=== PATIENT | female | born 1960 | race Caucasian/White ===

== ENCOUNTER 2019-03-21 01:31 | Inpatient (IN) | payer OTHER ==
[~2019-03-21] VITALS: Ht 152.4 cm; Wt 48.5 kg
--- NOTE | ~2019-03-21 | CON ---
[address] [address] CONSULTATION Name: LEON JAQUEZ Room: [address] IN M.R.#: [id number] Admission: 03/21/19 Attend Phys: Phillip Molina Discharge: Date of : 58 Report #: [id number] THIS REPORT FOR: //name// CC: Charmaine Andujar DATE OF SERVICE: 03/21/2019 HISTORY OF PRESENT ILLNESS: This is a pleasant 58-year-old female with past medical history significant for hyperlipidemia, who is presenting for evaluation of abdominal pain. The patient reports the abdominal pain began Saturday evening, is located in the epigastric region and became progressively worse, which prompted her hospital visit. The pain is localized, nonradiating, severe in intensity, it is associated with nausea and vomiting. The patient reports vomiting about 30 times since the onset of pain. Denies any hematemesis, hematochezia, melena, weight loss or other alarm symptoms. The patient reports this is the first time she has had these symptoms. PAST MEDICAL HISTORY: Hyperlipidemia. PAST SURGICAL HISTORY: The patient had no significant abdominal surgery. SOCIAL HISTORY: The patient denies smoking, takes about 1 beer per week. Denies any recreational drug use. FAMILY HISTORY: No family history of colon cancer or Marvin-related neoplasia. REVIEW OF SYSTEMS: Negative except for what was mentioned in the HPI. PHYSICAL EXAMINATION: GENERAL: The patient is alert, awake, oriented x 3. HEENT: Pupils are equal, round, reactive to light and accommodation. Mucous membranes are moist. There is no congestion. LUNGS: Clear to auscultation bilaterally. CARDIOVASCULAR: Rate and rhythm regular, S1, S2 present. ABDOMEN: Soft. There is no distention, guarding or rigidity. EXTREMITIES: Warm and well perfused. There is no edema. SKIN: Warm and dry. VITAL SIGNS: Temperature 37.6, pulse rate 102, blood pressure 130/73, respiratory rate 16. LABORATORY DATA: WBC count 26.2, hemoglobin 16.3, hematocrit 47.7, platelet count 265. Sodium 140, potassium 3.8, chloride 101, bicarbonate 25, BUN 18, creatinine 1.3, total bilirubin 0.6, AST 28, ALT 26, alkaline phosphatase 61. IMAGING: CT abdomen shows evidence of acute pancreatitis with mild [facility] [address] [place] [address] CONSULTATION Name: LEON JQAUEZ Room: [address] IN [facility]#: [id number] Admission: 03/21/19 Attend Phys: Phillip Molina Discharge: Date of : 58 Report #: [id number] peripancreatic fluid collection. ASSESSMENT AND PLAN: Pleasant 58-year-old female with past medical history of hyperlipidemia, who is presenting for evaluation of epigastric abdominal pain. The patient found to have elevated lipase as well as mild fluid collection around the pancreas with pancreatic edema suggestive of acute pancreatitis. The patient does not have gallstones; therefore, there is no evidence of biliary pancreatitis and she does not have significant alcohol use. Therefore, I would like to get an endoscopic ultrasound in 4 weeks for acute idiopathic pancreatitis. We will start the patient on clear liquid diet today, advance diet as tolerated. Continue supportive management. By: 1330 0000Vijasvir Martinez MD /nt
[~2019-03-21 01:31] MED LIST: CRESTOR10 MG PO; PERCOCET 5-3251 EACH PO
[2019-03-21 01:36] VITALS: BP 145/99
[2019-03-21] MEDS ORDERED: EVISTA60 MG PO (01:41)
[2019-03-21 02:01] LABS: HEMATOCRIT 47.7 % (37.0-47.0); HEMOGLOBIN 16.3 gm/dL (12.0-15.0); MCH 33.1 pg (26.0-34.0); MCHC 34.2 g/dL (28.0-37.0); MCV 96.8 fL (80.0-100.0); MPV 9.1 fl. (7.2-11.1); NUCLEATED RBCS 0 /100WBC; PLATELET COUNT* 265 thou/uL (150-400); RBC 4.92 mil/uL (4.20-5.00); RDW-CV 12.5 % (10.5-14.5); WBC 26.2 thou/uL (4.0-11.0)
[2019-03-21 02:23] LABS: ALBUMIN 3.9 g/dL (3.4-5.0); CALCIUM 9.1 mg/dL (8.5-10.1); CREATININE 1.3 mg/dL (0.6-1.3); POTASSIUM 3.8 mmol/L (3.5-5.1); TOTAL BILIRUBIN 0.6 mg/dL (<0.1-1.0); TOTAL PROTEIN 7.6 g/dL (6.4-8.2)
[2019-03-21 03:36] LABS: ABSOLUTE LYMPHOCYTES 1.8 thou/uL (0.8-5.3); ABSOLUTE MONOCYTES 2.1 thou/uL (0.0-1.2); ABSOLUTE NEUTROPHILS 22.3 thou/uL (1.6-8.1); PLATELET ESTIMATE ADEQUATE; TOXIC GRANULATION 1+
[2019-03-21 08:05] VITALS: BP 128/75
[2019-03-21 10:18] VITALS: BP 143/75
[2019-03-21 10:42] LABS: CHOLESTEROL 152 mg/dL (<200); HDL CHOLESTEROL 87 mg/dL (>40); LDL CHOLESTEROL 54 mg/dL (<100); TC:HDL 1.7 Ratio (Not establshd); TRIGLYCERIDE 58 mg/dL (<150); VLDL 12 mg/dL (<40)
[2019-03-21 10:43] LABS: SERUM ASSESSMENT Clear
--- NOTE | 2019-03-21 11:00 | NUR ---
PATIENT ARRIVED TO UNIT FROM ER AT 1027. ALERT AND ORIENTED X 4. VITAL SIGNS STABLE ON ROOM AIR. UP INDEPENDENTLY IN ROOM. IV PATENT WITH FLUIDS INFUSING. DENIES PAIN AND NAUSEA AT THIS TIME. ORIENTED PATIENT TO ROOM. CALL LIGHT WITHIN REACH. NURSING WILL CONTINUE TO MONITOR.
[2019-03-21 12:04] VITALS: BP 130/73
[2019-03-21 17:21] VITALS: BP 133/76
--- NOTE | 2019-03-21 18:09 | NUR ---
PATIENT ALERT AND ORIENTED X 4. VITAL SIGNS STABLE ON ROOM AIR. UP INDEPENDENTLY IN ROOM. IV PATENT AND FLUIDS INFUSING. DENIES PAIN AT THIS TIME. NAUSEA BEING MANAGED WITH PO MEDICATION. HOURLY ROUNDS MAINTAINED SINCE ARRIVING TO UNIT. CALL LIGHT WITHIN REACH. NURSING WILL CONTINUE TO MONITOR.
[2019-03-21 21:45] VITALS: BP 90/51
[2019-03-22 02:06] LABS: GLYCOHEMOGLOBIN (HGB A1C) 5.4 % (4.8-5.6)
[2019-03-22 03:07] LABS: HEPATITIS B SURFACE AG Negative (Negative)
[2019-03-22 04:38] LABS: HEMATOCRIT 36.1 % (37.0-47.0); MCH 33.4 pg (26.0-34.0); MCHC 34.1 g/dL (28.0-37.0); MCV 97.8 fL (80.0-100.0); MPV 9.5 fl. (7.2-11.1); RBC 3.69 mil/uL (4.20-5.00); RDW-CV 12.5 % (10.5-14.5); WBC 18.9 thou/uL (4.0-11.0)
[2019-03-22 04:58] LABS: HEMOGLOBIN 12.3 gm/dL (12.0-15.0)
--- NOTE | 2019-03-22 05:01 | NUR ---
PATIENT HAS SLEPT WELL THROUGHOUT THE NIGHT. VSS ON RA. NO C/O PAIN. PATIENT HAS REMAINED ON CLEAR LIQUID DIET. MEDICATIONS GIVEN ORDERED AND CHARTED. ASSESSMENT CHARTED. IV IN RIGHT AC-NS @ 150ML/HR. PATIENT INSTRUCTED TO USE CALL LIGHT WHEN NEEDING ASSISTANCE. HOURLY ROUNDS MADE. WILL CONTINUE WITH PLAN OF CARE AND NURSING TO MONITOR.
[2019-03-22 05:03] LABS: ALBUMIN 2.5 g/dL (3.4-5.0); CALCIUM 7.3 mg/dL (8.5-10.1); CREATININE 0.8 mg/dL (0.6-1.3); MAGNESIUM 1.6 mg/dL (1.8-2.4); POTASSIUM 3.6 mmol/L (3.5-5.1); TOTAL BILIRUBIN 0.6 mg/dL (<0.1-1.0); TOTAL PROTEIN 5.3 g/dL (6.4-8.2)
[2019-03-22 08:00] VITALS: BP 113/76
--- NOTE | 2019-03-22 15:44 | NUR ---
PATIENT ALERT AND ORIENTED X 4. VITAL SIGNS STABLE ON ROOM AIR. UP INDEPENDENTLY IN ROOM. IV PATENT WITH FLUIDS INFUSING. DENIES PAIN AT THIS TIME. NAUSEA BEING MANAGED WITH IV MEDICATION AND SCOPALAMINE PATCH. TOLERATING SOFT FIBER RESTRICTED DIET. HOURLY ROUNDS MAINTAINED THROUGHOUT THE SHIFT. CALL LIGHT WITHIN REACH. NURSING WILL CONTINUE TO MONITOR.
[2019-03-22 16:00] VITALS: BP 132/83
[2019-03-22 21:00] VITALS: BP 123/70
--- NOTE | 2019-03-23 06:17 | NUR ---
PATIENT HAS SLEPT WELL THROUGHOUT THE NIGHT. VSS ON RA. MEDICATION GIVEN ORDERED AND CHARTED. ASSESSMENT CHARTED. IV IN RIGHT AC-NS @ 100ML/HR. PATIENT INSTRUCTED TO USE CALL LIGHT WHEN NEEDING ASSISTANCE. HOURLY ROUNDS MADE. WILL CONTINUE WITH PLAN OF CARE AND NURSING TO MONITOR.
[2019-03-23 09:05] VITALS: BP 106/68
[2019-03-23] MEDS ORDERED: PROTONIX 20 MG20 MG PO (13:19)
[2019-03-23] MEDS ORDERED: ONDANSETRON HCL4 M2 PO (13:19)
[2019-03-23 15:11] VITALS: BP 123/70
[2019-03-23 15:13] VITALS: BP 123/70
[2019-03-23 16:15] VITALS: BP 123/70
== END 2019-03-23 16:15 | disposition home or self-care (01) | DRG 440 ==
LOC: M.ERS 01:31 → M.ORTHSURG 03:45 → M.TBA-ER 03:45 → M.ORTHSURG 10:26
PROVIDERS: Emergency Medicine; Internal Medicine; ADMIT Family Medicine
DX: K85.80 Other acute pancreatitis without necrosis or infection (principal); E78.5 Hyperlipidemia, unspecified; R73.9 Hyperglycemia, unspecified; D72.829 Elevated white blood cell count, unspecified; K80.80 Other cholelithiasis without obstruction; Z79.899 Other long term (current) drug therapy

== ENCOUNTER 2019-07-19 16:01 | Inpatient (IN) | payer OTHER ==
[~2019-07-19] VITALS: Ht 152.4 cm; Wt 47.6 kg
[~2019-07-19 16:01] MED LIST changes: +EVISTA60 MG PO; +ONDANSETRON HCL4 M2 PO; +PROTONIX 20 MG20 MG PO
[2019-07-19 16:02] VITALS: BP 78/36
[2019-07-19 16:33] LABS: ABSOLUTE BASOPHILS 0.1 thou/uL (0.0-0.2); ABSOLUTE EOSINOPHILS 0.1 thou/uL (0.0-0.7); ABSOLUTE LYMPHOCYTES 2.7 thou/uL (0.8-5.3); ABSOLUTE MONOCYTES 0.6 thou/uL (0.0-1.2); ABSOLUTE NEUTROPHILS 4.4 thou/uL (1.6-8.1); BASOPHILS 0.7 %; EOSINOPHILS 1.1 %; HEMOGLOBIN 13.6 gm/dL (12.0-15.0); LYMPHOCYTES 34.4 %; MCH 33.3 pg (26.0-34.0); MCHC 34.1 g/dL (28.0-37.0); MCV 97.6 fL (80.0-100.0); MONOCYTES 7.5 %; MPV 9.4 fl. (7.2-11.1); NUCLEATED RBCS 0 /100WBC; PLATELET COUNT* 230 thou/uL (150-400); POLYS 56.3 %; RBC 4.09 mil/uL (4.20-5.00); RDW-CV 12.7 % (10.5-14.5); WBC 7.8 thou/uL (4.0-11.0)
[2019-07-19 16:52] LABS: CALCIUM 9.1 mg/dL (8.5-10.1); POTASSIUM 3.6 mmol/L (3.5-5.1)
[2019-07-19 16:57] LABS: ALBUMIN 3.4 g/dL (3.4-5.0); TOTAL BILIRUBIN 0.3 mg/dL (<0.1-1.0); TOTAL PROTEIN 6.2 g/dL (6.4-8.2)
[2019-07-19 19:20] VITALS: BP 127/62
[2019-07-19 20:18] VITALS: BP 108/69
[2019-07-20 00:30] VITALS: BP 103/65
[2019-07-20 02:36] LABS: URINE BILIRUBIN NEGATIVE (Negative); URINE BLOOD NEGATIVE (Negative); URINE CLARITY CLEAR; URINE COLOR YELLOW; URINE GLUCOSE-RANDOM NEGATIVE (Negative); URINE KETONES 1+ (Negative); URINE LEUKOCYTES-REFLEX NEGATIVE (Negative); URINE NITRITE-REFLEX NEGATIVE (Negative); URINE PROTEIN NEGATIVE (Negative); URINE SPECIFIC GRAVITY 1.025 (1.005-1.030); URINE UROBILINOGEN 0.2 E.U./dl (0.2-1.0)
[2019-07-20 04:30] VITALS: BP 107/68
[2019-07-20 07:47] VITALS: BP 106/68
[2019-07-20 16:00] VITALS: BP 100/65
--- NOTE | 2019-07-20 16:36 | EKG ---
[place] [address] ELECTROCARDIOGRAM REPORT Name: LEON JAQUEZ Room: [address] ADM IN M.R.#: [id number] Admission: 07/19/19 Attend Phys: Phillip box Sa Discharge: Date of : 58 Date of Service: 07/19/19 1621 Report #: [id number] THIS REPORT FOR: //name// [facility] ED Test Date: 2019-07-19 Test Time: 16:21:37 Pat Name: LEON JAQUEZ Department: Room: [facility] Gender: F Soft Tile Setter: DS : 1960 Requested By: Amada Soto Order Number: [id number] MD: Singh Mclean Measurements Intervals [place] Rate: 84 P: 68 [place]: 146 QRS: 46 QRSD: 87 T: 24 QT: 382 QTc: 452 Interpretive Statements Sinus rhythm Compared to ECG 05/01/2011 09:45:42 No significant changes Electronically Signed On 07-20-2019 16:34:29 CDT by Singh Mclean [email or web address] <ELECTRONICALLY SIGNED> By: Singh Mclean MD, [facility] 07/20/19 1634 1621 1621 Singh Mclean MD, [facility] /EPI
[2019-07-20 19:30] VITALS: BP 106/64
[2019-07-21 06:01] LABS: HEMATOCRIT 30.3 % (37.0-47.0); MCH 33.8 pg (26.0-34.0); MCHC 34.7 g/dL (28.0-37.0); MCV 97.6 fL (80.0-100.0); MPV 8.8 fl. (7.2-11.1); RBC 3.1 mil/uL (4.20-5.00); RDW-CV 12.3 % (10.5-14.5); WBC 6.2 thou/uL (4.0-11.0)
[2019-07-21 06:08] LABS: HEMOGLOBIN 10.5 gm/dL (12.0-15.0)
[2019-07-21 06:10] LABS: PROTIME 10.4 Seconds (9.20-11.50)
[2019-07-21 06:16] LABS: ALBUMIN 2.6 g/dL (3.4-5.0); CALCIUM 7.9 mg/dL (8.5-10.1); CREATININE 0.9 mg/dL (0.6-1.3); MAGNESIUM 1.9 mg/dL (1.8-2.4); PHOSPHORUS* 3.5 mg/dL (2.5-4.9); POTASSIUM 3.8 mmol/L (3.5-5.1)
[2019-07-21 08:02] VITALS: BP 102/64
[2019-07-21 20:00] VITALS: BP 103/66
[2019-07-22 06:11] LABS: HEMATOCRIT 30.4 % (37.0-47.0); HEMOGLOBIN 10.7 gm/dL (12.0-15.0); MCH 34.4 pg (26.0-34.0); MCV 98.1 fL (80.0-100.0); MPV 9.3 fl. (7.2-11.1); RBC 3.1 mil/uL (4.20-5.00); RDW-CV 12.5 % (10.5-14.5); WBC 7.7 thou/uL (4.0-11.0)
[2019-07-22 06:25] LABS: ALBUMIN 2.7 g/dL (3.4-5.0); CALCIUM 8.2 mg/dL (8.5-10.1); CREATININE 0.8 mg/dL (0.6-1.3); POTASSIUM 3.9 mmol/L (3.5-5.1); TOTAL BILIRUBIN 0.4 mg/dL (<0.1-1.0); TOTAL PROTEIN 5.7 g/dL (6.4-8.2)
[2019-07-22 06:29] LABS: MAGNESIUM 1.9 mg/dL (1.8-2.4)
[2019-07-22 07:35] VITALS: BP 115/79
[2019-07-22 16:14] VITALS: BP 115/79
[2019-07-22 21:00] VITALS: BP 102/67
[2019-07-23] VITALS: BP 122/72
[2019-07-23 04:00] VITALS: BP 126/80
[2019-07-23 04:56] LABS: HEMATOCRIT 28.5 % (37.0-47.0); HEMOGLOBIN 9.8 gm/dL (12.0-15.0); MCH 33.5 pg (26.0-34.0); MCHC 34.2 g/dL (28.0-37.0); MPV 8.7 fl. (7.2-11.1); RBC 2.91 mil/uL (4.20-5.00); RDW-CV 12.1 % (10.5-14.5); WBC 10.3 thou/uL (4.0-11.0)
[2019-07-23 05:07] LABS: ALBUMIN 2.5 g/dL (3.4-5.0); CALCIUM 7.6 mg/dL (8.5-10.1); CREATININE 0.9 mg/dL (0.6-1.3); MAGNESIUM 1.7 mg/dL (1.8-2.4); POTASSIUM 4.1 mmol/L (3.5-5.1); TOTAL BILIRUBIN 0.4 mg/dL (<0.1-1.0); TOTAL PROTEIN 5.7 g/dL (6.4-8.2)
[2019-07-23 08:40] VITALS: BP 107/65
[2019-07-23 17:40] VITALS: BP 96/53
[2019-07-23 20:32] VITALS: BP 101/53
--- NOTE | 2019-07-23 21:44 | OP ---
[address] [address] OPERATIVE REPORT Name: MENG JAQUEZITH NELSON Room: [address] ADM IN M.R.#: [id number] Admission: 07/19/19 Attend Phys: Phillip Molina Discharge: Date of : 58 Report #: [id number] THIS REPORT FOR: //name// cc: Charmaine Jane Anna S. DO ~ THIS REPORT FOR: //name// CC: Charmaine Andujar DATE OF SERVICE: 07/22/2019 PREOPERATIVE DIAGNOSIS: Right comminuted proximal humerus fracture. POSTOPERATIVE DIAGNOSIS: Right comminuted proximal humerus fracture. PROCEDURE: Open reduction and internal fixation of right comminuted proximal humerus fracture. SURGEON: Gabe Reina DO ASSISTANTS: 1. Toribio Moran DO 2. Roman Jackson DO ANESTHESIA: General. ANTIBIOTICS: Ancef IV. FLUIDS: 1200 mL lactated Ringer's. ESTIMATED BLOOD LOSS: 250 mL. COMPLICATIONS: None. SPECIMENS: None. DRAINS: None. CONDITION OF THE PATIENT: Stable to PACU. IMPLANTS: Rosario ALPS proximal humerus plate, 11-hole locking screws proximally, cortical screws distally. Underneath the plate, there is one 2.7 [place] small-frag stainless steel screw in lag fashion. INDICATIONS FOR PROCEDURE: The patient admitted to [address] [address] OPERATIVE REPORT Name: LEON JAQUEZ Room: [address] IN M.R.#: [id number] Admission: 07/19/19 Attend Phys: Phillip Molina Discharge: Date of : 58 Report #: [id number] with a comminuted proximal humerus fracture, originally under Dr. Dudley's consultation. He asked that I take over care due to my fracture training. I went over with both her and her the imaging, exam findings, diagnosis, treatment options, ranging from nonoperative to operative, they wished to have operative. Risks and complications were discussed of ORIF for her comminuted proximal humerus fracture, displaced. They gave consent. DESCRIPTION OF PROCEDURE: I marked the right upper extremity in the presence of operative team members. Everyone agreed this was correct. She was taken back to the operative suite. General anesthetic administered, transferred over to the operating table in supine position, well-padded and secured appropriately. Right upper extremity was sterilely prepped and draped in standard fashion. Timeout was performed indicating correct patient, procedure, site, antibiotics and that implants were present and sterile. All team members agreed. Marked out our incision deltopectoral proximally, extending into an anterolateral approach distally towards the elbow, scalpel through the skin, soft tissue dissection down, visualized the cephalic vein, freed this up proximally and distally and took everything laterally. Deltopectoral interval identified. Released adhesions along the bursa were on the proximal humerus. Continuing distally, we released biceps fascia and took biceps and its underlying neurovascular structures medially and protected throughout the entirety of the case. Split our brachialis midline standard onto bone, visualized our fracture, significantly comminuted proximally, did not want to disrupt any blood supply. Therefore, no attempt to lag screw fixation was made nor stripping of the blood supply would be bridging. At the apex of the fracture and at the deltoid insertion, we were able to get a direct reduction of that aspect and placed a lag screw. This was with the Behzad 2.7 mm cortical screw with countersink, so that would not be the way, the plate had excellent purchase. Restored length, alignment, and rotation, placed an 11-hole Rosario plate in appropriate position and pinned appropriately. C-arm brought in and showed that we had restored length, alignment, rotation, and good position of hardware. We began by placing a cortical screw to suck to bone proximally as well as distally. We then began placing locking screws proximally including 2 kickstand screws in good position to help with cutout and within the calcar region, we placed the remaining cortical screws distally as well, brought in C-arm, confirmed that our reduction was appropriate as well as good placement of all hardware. Everything was moving as a unit and well restored. Saved images and dismissed C-arm. Thoroughly irrigated with normal saline. Began our closure. We approximated the deltopectoral interval with 0 Vicryl. Biceps fascia was very loosely closed. It came together under no undue tension with 0 Vicryl [id number] interrupted. Subcutaneous was closed with 2-0 Monocryl buried, deep skin with a running 3-0 nylon. Debriefing performed confirming procedure, blood loss, and that all counts were correct and final. All team members agreed. Sterile Prevena incisional VAC dressing was applied, functioning appropriately. She was extubated and taken to PACU stable. [address] [address] OPERATIVE REPORT Name: LEON JAQUEZ Room: [address] IN M.R.#: [id number] Admission: 07/19/19 Attend Phys: Phillip Menchacao Discharge: Date of : 58 Report #: [id number] POSTOPERATIVE COURSE AND EVALUATION: I spoke with her per her wishes. Addressed questions he had to state with satisfaction. He was very thankful for my time and efforts. She was resting in PACU, stable vital signs, pain controlled, neurovascularly intact, compartments soft and compressible. Dressing clean, dry, and intact and functioning appropriately. No pain out of proportion to passive stretch. No signs of compartment syndrome. PACU films showed stable fixation and reduction. Nonweightbearing. We will hold off on range of motion for now just to let the surgical site rest, but will begin shortly. DVT prophylaxis will be both pharmacological and mechanical until instructed otherwise. Encouraged nursing, medical staff, the patient and her family to call anytime with questions or concerns. It should be noted that COVID protocol was followed during the entirety of the patient care. <ELECTRONICALLY SIGNED> By: Gabe Reina DO 07/23/19 2144 31 Gabe Reina DO /nt
[2019-07-24 08:15] VITALS: BP 96/53
[2019-07-24] MEDS ORDERED: HYDROCODON-ACE1 EAC7 PO (10:17)
[2019-07-24] MEDS ORDERED: FERREX 150 PLU1 EAC1 PO (10:17)
[2019-07-24] MEDS ORDERED: LIDOPATCH1 EACH TOP (10:17)
[2019-07-24] MEDS ORDERED: ELIQUIS5 MG PO (10:17)
[2019-07-24 11:17] VITALS: BP 96/53
[2019-07-24 12:10] VITALS: BP 96/53
[2019-07-24 12:23] VITALS: BP 96/53
== END 2019-07-24 12:47 | disposition home health service (06) | DRG 494 ==
LOC: M.ERS 16:01 → M.TBA-ER 18:08 → M.3W 18:08 → M.ORTHSURG 19:35 → M.3W 07-20 07:37
PROVIDERS: Internal Medicine; Orthopaedic Surgery; Physician Assistant; ADMIT Family Medicine
PROC: 0JQ10ZZ Repair Face Subcutaneous Tissue and Fascia, Open Approach (ICD-10-PCS; 2019-07-19)
PROC: 2W3AX1Z Immobilization of Right Upper Arm using Splint (ICD-10-PCS; 2019-07-19)
PROC: 0PSC04Z Reposition Right Humeral Head with Internal Fixation Device, Open Approach (ICD-10-PCS; principal; 2019-07-22)
DX: S42.201A Unspecified fracture of upper end of right humerus, initial encounter for closed fracture (principal); M81.0 Age-related osteoporosis without current pathological fracture; E78.5 Hyperlipidemia, unspecified; W18.39XA Other fall on same level, initial encounter; E78.00 Pure hypercholesterolemia, unspecified; Y93.01 Activity, walking, marching and hiking; S01.111A Laceration without foreign body of right eyelid and periocular area, initial encounter; I95.9 Hypotension, unspecified; Z79.899 Other long term (current) drug therapy; Y99.8 Other external cause status; Z23 Encounter for immunization; Y92.89 Other specified places as the place of occurrence of the external cause

== ENCOUNTER → 2019-08-04 | Outpatient (CLI) | payer OTHER ==
[~2019-08-04] MED LIST changes: +ELIQUIS5 MG PO; +FERREX 150 PLU1 EAC1 PO; +HYDROCODON-ACE1 EAC7 PO; +LIDOPATCH1 EACH TOP
== END ==
LOC: M.LAB 13:18
DX: Z96.698 Presence of other orthopedic joint implants (principal); Z87.81 Personal history of (healed) traumatic fracture

== ENCOUNTER → 2019-09-17 | Day surgery (SDC) | payer OTHER ==
[2019-09-17 11:40] LABS: HEMATOCRIT 42.6 % (37.0-47.0); HEMOGLOBIN 14.4 gm/dL (12.0-15.0); MCH 33.5 pg (26.0-34.0); MCHC 33.9 g/dL (28.0-37.0); MCV 98.7 fL (80.0-100.0); MPV 8.1 fl. (7.2-11.1); RBC 4.31 mil/uL (4.20-5.00); RDW-CV 12.3 % (10.5-14.5); WBC 5.3 thou/uL (4.0-11.0)
[2019-09-17 11:46] LABS: POTASSIUM 3.8 mmol/L (3.5-5.1)
[2019-09-17 11:48] LABS: PROTIME 10.5 Seconds (9.20-11.50)
--- NOTE | 2019-09-21 15:10 | PATH ---
[address] [address] PATHOLOGY RPT PROCEDURE Name: BELEN JAQUEZ Room: [facility] M.R.#: [id number] Admission: 09/17/19 Date of : 58 Discharge: Report #: [id number] Path Case #: [id number] [facility] Accession Number: [id number] . 01 Material submitted: . gallbladder - GALLBLADDER AND CONTENTS . 01 Clinical history: . Idiopathic acute pancreatitis without infection or necrosis . 02 Diagnosis: Gallbladder and contents: - Chronic cholecystitis. (MACY:sarath; 09/21/2019) [facility] [place] 1132 Local . 02 Electronically signed: . Sebastian Ochoa MD, Pathologist NPI- [id number] . 01 Gross description: . The specimen is received in formalin labeled "Humaira Jaquezith, gallbladder and contents" and consists of an intact green gallbladder measuring 6.0 x 2.5 x 2.0 cm. The margin is inked black. Opening reveals a lumen filled with viscous green bile and no calculi. The mucosa is green and velvety with an average wall thickness of 0.1 cm. No masses are identified. Fleece Tier sections are submitted in A1. (SDY; 09/18/2019) SYU/SYU 09/18/2019 1157 Local . 02 Pathologist provided ICD-10: K81.1 . 02 CPT . 512074 Specimen Comment: A courtesy copy of this report has been sent to [phone] Specimen Comment: [phone] Specimen Comment: Report sent to / DR CHRISITANSEN Performed at: [address], [place] [id number] MD Tre Mcintosh MD Phone: [phone] Performed at: 02 [facility] [address], [place], [place] [id number] MD Sebastian Ochoa MD Phone: [phone]
--- NOTE | 2019-09-22 08:58 | OP ---
[address] [address] OPERATIVE REPORT Name: LEON JAQUEZ Room: [facility]..#: [id number] Admission: 09/17/19 Attend Phys: Maryjane Collazo DO Discharge: Date of : 58 Report #: [id number] THIS REPORT FOR: //name// cc: Charmaine aJne Anna S. DO ~ THIS REPORT FOR: //name// CC: Charmaine Prater DICTATED BY: Vadim Bauer DO DATE OF SERVICE: 09/17/2019 PREOPERATIVE DIAGNOSIS: Recurrent pancreatitis. POSTOPERATIVE DIAGNOSIS: Recurrent pancreatitis. SURGEON: Maryjane Collazo DO ASSISTANTS: Vadim Bauer, PGY5 and MS Qing4. OPERATION PERFORMED: Laparoscopic cholecystectomy, intraoperative cholangiogram and surgeon interpretation of fluoroscopic images. ANESTHESIA: General, local and bilateral transversus abdominis plane block. ESTIMATED BLOOD LOSS: 2 mL. SPECIMEN: Cholecystectomy. COMPLICATIONS: None. INDICATIONS: The patient is a 59-year-old female that initially presented in April with history of recurrent bouts of pancreatitis. She was referred by GI for findings of some fatty food intolerance and potential benefit of cholecystectomy. The patient was informed of the risks and benefits of cholecystectomy with risks including but not limited to bleeding, infection, common bile duct injury, bowel injury, hernia formation, need for reoperation, chronic diarrhea. She understood the risks and decided to proceed with surgery. DESCRIPTION OF PROCEDURE: After informed consent was obtained, the patient was brought to the operating room and placed in supine position. SCDs were on and running. Preoperative antibiotics were given. General anesthesia was administered with an ET tube. The patient was prepped and draped in the usual [address] [address] OPERATIVE REPORT Name: LEON JAQUEZ Room: [employer].#: [id number] Admission: 09/17/19 Attend Phys: Maryjane Collazo DO Discharge: Date of : 58 Report #: [id number] sterile fashion. A surgical pause was held to confirm proper patient and procedure. Infraumbilical skin was anesthetized with 0.5% Marcaine and elevated with two Adson's and incised using an 11 blade. Dissection was carried down bluntly with S retractors until the fascia was identified. This was elevated with 2 Kochers and incised using cautery. The peritoneum was bluntly entered using a Arlette. The Arnav trocar was then introduced into the abdomen and the abdomen was insufflated. Arnav trocar was secured with stay sutures of 0 Vicryl on either side of the fascia. Camera was introduced into the abdomen. The gallbladder was not visible under the liver edge. The patient was positioned head up and right side up. A 5 mm port was placed in the epigastrium under direct visualization followed by 2 ports in the right upper quadrant under direct visualization, both 5 mm in size. The gallbladder was elevated. There were some light adhesions to omentum, which were taken down using cautery. The peritoneum overlying the hepatocystic triangle was opened using cautery. This plane was developed laterally and then medially. Blunt dissection was used to identify the cystic duct. This was circumferentially dissected using [place] followed by circumferential dissection of the cystic artery. At this point, we had a critical view of safety with only two structures entering the gallbladder. The Lopez clamp was then inserted and clamped across the base of the gallbladder. The catheter was advanced into the cystic duct and withdrew and flushed easily. A cholangiogram was performed. There was prompt filling of the cystic duct, the common bile duct, the common hepatic ducts in the right and left hepatics with their branches. The common bile duct promptly emptied into the duodenum. There was a brief filling defect, although this quickly disappeared with repeated flushes of contrast indicative of an air bubble. There was no distal filling defects at the CBD. At this point, the catheter was removed from the cystic duct. The Lopez clamp was released. Two clips were placed proximally on the cystic duct, 1 distal and the cystic artery was doubly clipped as well. Laparoscopic scissors were used to divide the cystic duct and cystic artery. Gallbladder was then elevated and dissected free from the liver bed, placed within an EndoCatch bag and placed aside. Liver bed was inspected and hemostatic. Clips were hemostatic. There was no ongoing bile leak. A small amount of bilious spillage from the Lopez clamp was irrigated and suctioned. The patient was positioned supine. The ports were inspected. The lateral 5 mm trocar had a small amount of peritoneal bleeding, which was controlled with cautery. The abdomen was desufflated. All ports were removed under direct visualization. The specimen was removed through the umbilical incision. Previous stay sutures were elevated and replaced with Kochers. A single tfpwwo-we-ajvyd using 0 Vicryl was used to close the fascia. All skin was closed using 4-0 Monocryl. Wounds were cleansed and dressed with Dermabond. The patient was emerged from anesthesia and transferred to the PACU in stable condition. All counts were correct. <ELECTRONICALLY SIGNED> By: Maryjane Collazo, 09/22/19 0858 1442 1511Crain Collazo DO /nt
== END | disposition home or self-care (01) ==
LOC: M.SUR 05:17
PROVIDERS: ATTEND Surgery
DX: K81.1 Chronic cholecystitis (principal); Z11.59 Encounter for screening for other viral diseases; Z98.890 Other specified postprocedural states; Z79.899 Other long term (current) drug therapy; Z88.8 Allergy status to other drugs, medicaments and biological substances

== ENCOUNTER 2019-12-05 23:37 | Inpatient (IN) | payer OTHER ==
[~2019-12-05] VITALS: Ht 152.4 cm; Wt 51.3 kg
[2019-12-05 23:41] VITALS: BP 146/77
[2019-12-06 00:14] LABS: ABSOLUTE BASOPHILS 0.1 thou/uL (0.0-0.2); ABSOLUTE EOSINOPHILS 0.1 thou/uL (0.0-0.7); ABSOLUTE LYMPHOCYTES 2.8 thou/uL (0.8-5.3); ABSOLUTE MONOCYTES 0.7 thou/uL (0.0-1.2); ABSOLUTE NEUTROPHILS 6.8 thou/uL (1.6-8.1); BASOPHILS 0.6 %; EOSINOPHILS 0.7 %; HEMATOCRIT 41.8 % (37.0-47.0); HEMOGLOBIN 14.4 gm/dL (12.0-15.0); MCH 32.8 pg (26.0-34.0); MCHC 34.5 g/dL (28.0-37.0); MCV 95.1 fL (80.0-100.0); MONOCYTES 6.4 %; MPV 8.4 fl. (7.2-11.1); NUCLEATED RBCS 0 /100WBC; PLATELET COUNT* 266 thou/uL (150-400); POLYS 65.3 %; RDW-CV 13.1 % (10.5-14.5); WBC 10.3 thou/uL (4.0-11.0)
[2019-12-06 00:23] LABS: ANION GAP 7 mmol/L (7-16); BUN 18 mg/dL (7-18); CHLORIDE 102 mmol/L (98-107); CO2 31 mmol/L (21-32); CREATININE 1.2 mg/dL (0.6-1.3); GLUCOSE 120 mg/dL (70-99); POTASSIUM 3.3 mmol/L (3.5-5.1); SODIUM 140 mmol/L (136-145)
[2019-12-06 00:36] LABS: ALKALINE PHOSPHATASE 96 U/L (46-116); NT-PRO BRAIN NAT PEPTIDE 82 pg/mL (<300); SGOT 24 U/L (15-37); SGPT 24 U/L (30-65); TOTAL BILIRUBIN 0.3 mg/dL (<0.1-1.0); TOTAL PROTEIN 7.3 g/dL (6.4-8.2)
[2019-12-06 00:56] LABS: LIPASE > 30000 U/L (73-393)
[2019-12-06 01:35] VITALS: BP 107/62
[2019-12-06 02:00] VITALS: BP 97/51
[2019-12-06 07:10] VITALS: BP 112/61
[2019-12-06 07:14] LABS: ANION GAP 10 mmol/L (7-16); BUN 18 mg/dL (7-18); CHLORIDE 106 mmol/L (98-107); CHOLESTEROL 118 mg/dL (<200); CO2 26 mmol/L (21-32); GLUCOSE 119 mg/dL (70-99); HDL CHOLESTEROL 59 mg/dL (>40); LDL CHOLESTEROL 52 mg/dL (<100); POTASSIUM 3.4 mmol/L (3.5-5.1); SODIUM 142 mmol/L (136-145); TRIGLYCERIDE 35 mg/dL (<150); VLDL 7 mg/dL (<40)
[2019-12-06 07:16] LABS: SERUM ASSESSMENT Clear
[2019-12-06 10:12] LABS: URINE BILIRUBIN NEGATIVE (Negative); URINE BLOOD NEGATIVE (Negative); URINE CLARITY CLEAR; URINE COLOR YELLOW; URINE GLUCOSE-RANDOM NEGATIVE (Negative); URINE KETONES TRACE (Negative); URINE LEUKOCYTES-REFLEX NEGATIVE (Negative); URINE NITRITE-REFLEX NEGATIVE (Negative); URINE PROTEIN NEGATIVE (Negative); URINE SPECIFIC GRAVITY 1.025 (1.005-1.030); URINE UROBILINOGEN 0.2 E.U./dl (0.2-1.0)
--- NOTE | 2019-12-06 13:02 | EKG ---
[place] [address] ELECTROCARDIOGRAM REPORT Name: LEON JAQUEZ Room: [address] ADM IN M.R.#: [id number] Admission: 12/06/19 Attend Phys: Bill Neil Discharge: Date of : 58 Date of Service: 12/06/19 0019 Report #: [id number] THIS REPORT FOR: //name// [facility] ED Test Date: 2019-12-06 Test Time: 00:19:00 Pat Name: LEON JAQUEZ Department: Room: [facility] Gender: F Junior Marketing Associate: : 1960 Requested By: Marisol Gupta Order Number: [id number] MD: Singh Mclean Measurements Intervals [place] Rate: 85 P: 73 [place]: 149 QRS: 69 QRSD: 89 T: 56 QT: 390 QTc: 464 Interpretive Statements Sinus rhythm Compared to ECG 07/19/2019 16:21:37 No significant changes Electronically Signed On 12-06-2019 13:01:59 CDT by Singh Mclean [email or web address] <ELECTRONICALLY SIGNED> By: Singh Mclean MD, [facility] 12/06/19 1301 0019 0019 Singh Mclean MD, [facility] /EPI
[2019-12-06 15:14] VITALS: BP 104/61
[2019-12-06 19:45] VITALS: BP 116/68
[2019-12-07 02:07] LABS: HEMATOCRIT 32.9 % (37.0-47.0); HEMOGLOBIN 11.3 gm/dL (12.0-15.0); MCH 33.1 pg (26.0-34.0); MCHC 34.4 g/dL (28.0-37.0); RBC 3.42 mil/uL (4.20-5.00); RDW-CV 13.1 % (10.5-14.5); WBC 7.5 thou/uL (4.0-11.0)
[2019-12-07 02:24] LABS: ALBUMIN 2.7 g/dL (3.4-5.0); CALCIUM 7.5 mg/dL (8.5-10.1); CREATININE 0.9 mg/dL (0.6-1.3); MAGNESIUM 1.6 mg/dL (1.8-2.4); POTASSIUM 3.7 mmol/L (3.5-5.1); TOTAL BILIRUBIN 0.7 mg/dL (<0.1-1.0)
[2019-12-07 08:00] VITALS: BP 110/61
[2019-12-07 12:29] VITALS: BP 106/57
--- NOTE | 2019-12-07 15:35 | CON ---
[address] [address] CONSULTATION Name: LEON JAQUEZ Room: [address] IN .R.#: [id number] Admission: 12/06/19 Attend Phys: Susan Webster Discharge: Date of : 58 Report #: [id number] THIS REPORT FOR: //name// cc: Charmaine Jane Anna S. DO ~ THIS REPORT FOR: //name// CC: Charmaine Neil DATE OF SERVICE: 12/06/2019 HISTORY OF PRESENT ILLNESS: This is a pleasant 59-year-old female known to our service from her previous hospitalization for acute pancreatitis. At that time, the patient had undergone an interval cholecystectomy. The patient reports repeat abdominal pain in the epigastric regions for the last 3 days, but became particularly severe last night, associated with nausea, no vomiting. The patient reports the pain is localized, nonradiating, sharp, associated with eating food and relieved by pain medication and bowel rest. PAST MEDICAL HISTORY: Hyperlipidemia, pancreatitis. PAST SURGICAL HISTORY: Tubal ligation, breast biopsy, cholecystectomy. SOCIAL HISTORY: The patient takes alcohol occasionally. Denies smoking or recreational drug use. FAMILY HISTORY: No family history of colon cancer or Marvin related neoplasia. REVIEW OF SYSTEMS: A comprehensive 10-point review of systems is negative except for what was mentioned in the HPI. PHYSICAL EXAMINATION: VITAL SIGNS: Temperature 36.1, pulse rate 100, respirations 15, blood pressure 121/61, pulse ox 100% on room air. GENERAL: The patient is alert, awake, oriented x 3. HEENT: Pupils are equal, round, reactive to light and accommodation. Mucous membranes are moist. There is no congestion. LUNGS: Clear to auscultation bilaterally. CARDIOVASCULAR: Rate and rhythm regular, S1, S2 present. ABDOMEN: Soft. There is no distention, guarding or rigidity. EXTREMITIES: Warm, well perfused. There is no edema. LABORATORY DATA: Hemoglobin 14.4, hematocrit 41.8, WBC count 10.8, platelet count 266. Sodium 140, potassium 3.4, chloride 106, bicarbonate 26, BUN 18, creatinine 1, total bilirubin 0.3, AST 24, ALT 24, alkaline phosphatase [address] [place] [address] CONSULTATION Name: LEON JAQUEZ NELSON Room: [address] IN [facility]#: [id number] Admission: 12/06/19 Attend Phys: Susan Webster Discharge: Date of : 58 Report #: [id number] lipase on presentation greater than 30,000. ASSESSMENT AND PLAN: Pleasant 59-year-old female with past medical history significant for gallstone pancreatitis in the past for which she underwent cholecystectomy is presenting for repeat episode of pancreatitis. A CT abdomen is pending. Still let us know if there is any biliary ductal dilation. If there is we will plan to proceed with ERCP. Otherwise, we will get an EUS in 4 weeks for recurrent pancreatitis. The plan was discussed with the patient. Thank you for this consultation. <ELECTRONICALLY SIGNED> By: Vicente Martinez MD 12/07/19 1535 1119 [id number] Martinez MD /nt
[2019-12-07 16:40] VITALS: BP 116/68
[2019-12-07 20:20] VITALS: BP 121/75
[2019-12-08 04:41] LABS: HEMATOCRIT 34.6 % (37.0-47.0); MCH 32.9 pg (26.0-34.0); MCHC 34.7 g/dL (28.0-37.0); MCV 94.9 fL (80.0-100.0); RBC 3.64 mil/uL (4.20-5.00); RDW-CV 13.2 % (10.5-14.5); WBC 8.5 thou/uL (4.0-11.0)
[2019-12-08 05:03] LABS: ALBUMIN 2.7 g/dL (3.4-5.0); CALCIUM 7.6 mg/dL (8.5-10.1); MAGNESIUM 1.6 mg/dL (1.8-2.4); POTASSIUM 3.4 mmol/L (3.5-5.1); TOTAL BILIRUBIN 0.7 mg/dL (<0.1-1.0); TOTAL PROTEIN 5.3 g/dL (6.4-8.2)
[2019-12-08 07:05] VITALS: BP 131/79
[2019-12-08 12:06] VITALS: BP 131/79
[2019-12-08 13:56] VITALS: BP 131/79
[2019-12-08 13:57] VITALS: BP 131/79
[2019-12-09 02:06] LABS: GLYCOHEMOGLOBIN (HGB A1C) 5.7 % (4.8-5.6)
== END 2019-12-08 13:58 | disposition home or self-care (01) | DRG 440 ==
LOC: M.ERS 23:37 → M.ORTHSURG 12-06 00:51 → M.TBA-ER 12-06 00:51 → M.ORTHSURG 12-06 01:39
PROVIDERS: Internal Medicine; Personal Emergency Response Attendant; ADMIT Internal Medicine; ATTEND Internal Medicine
DX: K85.90 Acute pancreatitis without necrosis or infection, unspecified (principal); E78.5 Hyperlipidemia, unspecified; E87.6 Hypokalemia; R73.9 Hyperglycemia, unspecified; Z20.828 Contact with and (suspected) exposure to other viral communicable diseases; Z88.8 Allergy status to other drugs, medicaments and biological substances; Z88.6 Allergy status to analgesic agent; Z91.041 Radiographic dye allergy status; Z87.891 Personal history of nicotine dependence; Z79.899 Other long term (current) drug therapy